=== PATIENT | male | born 1990 | race Caucasian/White ===

== ENCOUNTER → 2024-01-20 10:53 | Outpatient (REF) | payer OTHER, SELFPAY | LOC: RAD 10:53 | PROVIDERS: ATTENDING PHYSICIAN Psychiatry & Neurology Neurology; FAMILY PHYSICIAN Family Medicine; REFERRING PHYSICIAN Internal Medicine | DX: M47.12 Other spondylosis with myelopathy, cervical region (principal); M53.9 Dorsopathy, unspecified; G12.8 Other spinal muscular atrophies and related syndromes | CPT/HCPCS: 72040; 72100; 72202 ==

== ENCOUNTER 2025-03-15 11:23 | Emergency (ER) | payer OTHER, SELFPAY ==
[2025-03-15 11:33] VITALS: BP 126/81
[2025-03-15 12:29] LABS: Urine Albumin Negative (Neg - Trace); Urine Bilirubin Negative (Negative); Urine Character Clear (Clear); Urine Color Yellow; Urine Glucose Negative (Negative); Urine Ketone Negative (Negative); Urine Leukocyte Negative (Negative); Urine Nitrite Negative (Negative); Urine Occult Blood Negative (Negative); Urine Specific Gravity 1.015 (<1.030); Urine Urobilinogen Negative (Neg - 1+)
--- NOTE | 2025-03-15 12:57 | ED.GENMED ---
History of Present Illness
General
Chief Complaint: Abdominal Symptoms
Time Seen by Provider: 03/15/25 12:37
History of Present Illness
History of Present Illness:
Patient is a 34-year-old male with a history of narcolepsy, mitral valve prolapse who presents with intermittent generalized abdominal pain. Symptoms have been going on for about 3 weeks. States sometimes the pain is very mild and sometimes it is
more severe. States she is not currently in any pain at this time. He denies any nausea or postprandial symptoms. Denies any constipation or diarrhea. Denies any urinary symptoms. States he tried making an appointment with a GI doctor but was
not able to get in for a few months. Denies any fevers
Past History
Past History
ED Past Medical History: None
ED Past Surgical History: None
Social History
Tobacco: Smoker
Phy Exam
Physical Exam
Physical Exam:
GENERAL APPEARANCE: NAD, well developed/ well nourished
EYES lids/conjunctiva normal
EARS/NOSE/THROAT Mucous membranes moist, uvula midline without oral pharyngeal erythema, exudate or swelling
HEAD/NECK normocephalic atraumatic, neck is supple.
RESPIRATORY respiratory effort normal, speaks in full sentences, no accessory muscle use. Lungs clear to auscultation without rhonchi, wheezes, rales
CARDIAC Regular rate and rhythm, no edema.
ABDOMINAL Soft, ND/NT. No pulsatile masses on exam, rebound tenderness, Desai sign or pain over Mcburney's point.
MUSCLES/EXTREMITIES No abnormal range of motion, no swelling.
SKIN Warm, pink and dry. No rashes
NEUROLOGICAL Speech is clear and appropriate. Normal level of consciousness. 5/5 strength in all extremities.
PSYCH Normal mood and affect. Judgement/competence is appropriate
Course
Orders/Labs/Results
Orders:
Orders
03/15/25 11:50
Urinalysis Reflex To Culture Urgent
Date Specimen was Collected: 03/15/25
Time Specimen was Collected: 11:37
05/08/25 13:16
Complete Blood Count/With Diff Urgent
Comprehensive Metabolic Panel Urgent
Abnormal Lab Results
03/15/25
13:16
MCH 31.6 H pg
(27.0-31.0)
Lymphocytes % 20.3 L %
(20.5-51.1)
Glucose 101 H mg/dl
(70-99)
Total Bilirubin 1.9 H mg/dl
(0.2-1.3)
03/15/25 13:16
03/15/25 13:16
Vital Signs
Initial and Last Documented VS:
Initial Vital Signs
Temp Pulse Resp BP Pulse Ox
98.9 F 81 16 126/81 98
03/15/25 11:33 03/15/25 11:33 03/15/25 11:33 03/15/25 11:33 03/15/25 11:33
Last Documented Vital Signs
Temp Pulse Resp BP Pulse Ox
98.9 F 81 16 122/88 98
03/15/25 11:33 03/15/25 11:33 03/15/25 11:33 03/15/25 13:21 03/15/25 11:33
*Critical Care Note
Total Time (30-74mins, 75-104mins- exclusive of procedures): Not Applicable
ED Attending Note
ED Attending Note
ED Attending Note:
Patient is very well-appearing. He has benign abdominal exam. Symptoms have been ongoing for the past few weeks making acute emergency and much less likely. He has no abdominal tenderness and is currently in no pain at this time. I discussed
possible workup including blood work and imaging however the risk of CT radiation appears to outweigh the benefit of diagnosing an acute emergency at this time. I discussed the importance of GI follow-up for further workup. I discussed him
starting Prilosec as this may help if his symptoms are related to some type of gastritis or acid. We will check blood work today to check for any metabolic abnormalities. If blood work looks acceptable, I feel that he is stable for outpatient
workup with strict return precautions for new or severe, persistent symptoms
Blood work without any leukocytosis. Metabolic panel does reveal elevation in his total bilirubin though he reports a history of [place] disease. He has no symptoms at this time. Will discharge for outpatient testing. Return precautions given
-
Portions of this chart may have been created with voice recognition software.� Occasional wrong word or��sound alike� substitutions may have occurred due to the inherent limitations of voice recognition software.
Discharge Plan
Departure
Patient Disposition: Home (Routine Discharge)
Date of Disposition: 03/15/25
Time of Disposition: 13:54
Patient with high blood pressure during this ER visit?: No
Discharge Problem:
Abdominal pain
Instructions: Abdominal Pain
Prescriptions:
No Action
clindamycin HCl 150 MG capsule
300 mg PO
Patient Comments:
Pt. took last dose on 01/13
hydrocodone-acetaminophen [Vicodin ES] 1 EACH tablet
1 ea PO Q4HPRN PRN (Reason: pain)
ibuprofen 200 MG tablet
200 mg PO BID
omeprazole 20 MG capsule,delayed release(DR/EC)
20 mg PO DAILY
armodafinil [Nuvigil] 250 MG tablet
250 mg PO DAILY
sucralfate 1 GRAM/10 ML suspension
1 gm PO ACHS Qty: 200 0RF
fluconazole [Diflucan] 50 MG tablet
150 mg PO ONCE Qty: 1 0RF
acetaminophen-codeine 12 MG/5 ML solution
5 ml PO Q4HPRN PRN (Reason: pain) Qty: 100 0RF
Rx Instructions:
120 mg and 12 mg/5 ml
Referrals:
Casa Bynum MD [Family Provider] -
Activity Restrictions/Additional Instructions:
Please follow-up with a rib trim separator for outpatient workup. Return to the emergency department with severe persistent pain in the abdomen or pain that is accompanied by fever, vomiting, inability to tolerate food. Please start taking
Prilosec daily
Interventions
Interventions:
*Risk Screen - Suicide Last Done: 03/15/25 11:33
*General Assessment Last Done: 03/15/25 11:33
*Neglect/Abuse Screening Last Done: 03/15/25 11:33
*ED COVID-19 Vaccine History Last Done: 03/15/25 11:33
*Nursing Disposition Last Done: 03/15/25 14:45
IE-Hypoyx-Kkkotzpfcy Assessment Last Done: 03/15/25 14:17
Discharge Date and Time
Discharge Date/Time: 03/15/25 14:46
Print Language: NEPALI
[2025-03-15 13:17] VITALS: BMI 19.2
[2025-03-15 13:21] VITALS: BP 122/88
[2025-03-15 13:34] LABS: % Basophils 0.5 % (0-2); % Eosinophils 2.2 % (0-6); % Immature Granulocytes 0.2 % (0-0.5); % Lymphocytes 20.3 % (20.5-51.1); % Monocytes 7.9 % (1.7-9.3); % Neutrophils 68.9 % (42.2-75.2); Absolute Eosinophils 0.1 10^3/uL (0-0.7); Absolute Lymphocytes 1.2 10^3/uL (1.2-3.4); Absolute Monocytes 0.5 10^3/uL (0.1-0.6); Absolute Neutrophils 4.1 10^3/uL (1.4-6.5); Hematocrit 42.5 % (39.0-52.0); Mean Corp Hgb Conc. 35.3 g/dL (33.0-37.0); Mean Corpuscular Hgb 31.6 pg (27.0-31.0); Mean Corpuscular Volume 89.5 fL (80.0-94.0); Mean Platelet Volume 9.2 fL (7.4-10.4); Nucleated Red Blood Cells % 0 % (-); Platelet Count 224 10^3/uL (130-400); Red Blood Cell Count 4.75 10^6/uL (4.70-6.10); Red Cell Dist. Width 12.4 % (11.5-14.5)
[2025-03-15 13:47] LABS: ALT (SGPT) 20 U/L (0-50); AST (SGOT) 19 U/L (17-59); Alkaline Phosphatase 64 U/L (38-126); Blood Urea Nitrogen 17 mg/dl (9-20); Calcium 9.7 mg/dl (8.4-10.2); Carbon Dioxide 29 mmol/L (22-30); Chloride 101 mmol/L (98-107); Estimated Creatinine Clearance > 125 ml/min; Glucose 101 mg/dl (70-99); Potassium 4.8 mmol/L (3.5-5.1); Sodium 138 mmol/L (135-145); Total Bilirubin 1.9 mg/dl (0.2-1.3); Total Protein 7.4 g/dl (6.3-8.2); eGFR > 60.00
== END 2025-03-15 14:46 | disposition home or self-care (01) ==
LOC: EMR 11:23
PROVIDERS: Emergency Medicine; EMERGENCY PHYSICIAN Emergency Medicine; FAMILY PHYSICIAN Family Medicine
DX: R10.84 Generalized abdominal pain (principal); G47.419 Narcolepsy without cataplexy; I34.1 Nonrheumatic mitral (valve) prolapse; F17.200 Nicotine dependence, unspecified, uncomplicated
CPT/HCPCS: 99282; 80053; 81003; 85025

== ENCOUNTER → 2025-05-01 14:01 | Outpatient (REF) | payer OTHER, SELFPAY | LOC: RAD 14:01 | PROVIDERS: ATTENDING PHYSICIAN Student in an Organized Health Care Education/Training Program | DX: R10.9 Unspecified abdominal pain (principal) | CPT/HCPCS: 74177; Q9967 ==

== ENCOUNTER → 2025-06-20 13:54 | Outpatient (REF) | payer OTHER, SELFPAY | LOC: RAD 13:54 | PROVIDERS: ATTENDING PHYSICIAN Physician Assistant | DX: Z76.89 Persons encountering health services in other specified circumstances (principal); R39.9 Unspecified symptoms and signs involving the genitourinary system | CPT/HCPCS: 76775 ==

== ENCOUNTER 2025-06-27 06:20 | Day surgery (SDC) | payer OTHER, SELFPAY | END 2025-06-27 10:55 | disposition home or self-care (01) | LOC: GI 06:20 | PROVIDERS: ATTENDING PHYSICIAN Student in an Organized Health Care Education/Training Program | DX: R10.11 Right upper quadrant pain (principal); R10.31 Right lower quadrant pain; K62.89 Other specified diseases of anus and rectum; K20.90 Esophagitis, unspecified without bleeding; D12.5 Benign neoplasm of sigmoid colon; K62.1 Rectal polyp | CPT/HCPCS: 45385; 43239; 88305; 88342 ==